=== PATIENT | male | born 1960 | race Caucasian/White ===

== ENCOUNTER → 2019-11-25 11:18 | Outpatient (BNVA) | payer OTHER, SELFPAY | PROVIDERS: Family Provider Family Medicine; Visit Provider Nurse Practitioner Family | DX: J06.9 Acute upper respiratory infection, unspecified (principal) | CPT/HCPCS: 87635 ==

== ENCOUNTER → 2020-10-07 11:05 | Outpatient (BNVA) | payer OTHER, SELFPAY | PROVIDERS: Family Provider Family Medicine; Visit Provider Nurse Practitioner Family | DX: Z20.822 Contact with and (suspected) exposure to COVID-19 (principal); J06.9 Acute upper respiratory infection, unspecified | CPT/HCPCS: 87635 ==

== ENCOUNTER 2022-01-21 06:00 | Outpatient (RCR) | payer OTHER, SELFPAY | END 2022-02-02 23:59 | disposition home or self-care (01) | LOC: SPT 06:00 | PROVIDERS: Visit Provider Family Medicine | DX: H81.10 Benign paroxysmal vertigo, unspecified ear (principal) | CPT/HCPCS: 95992; 97162 ==